=== PATIENT | male | born 1955 | race Caucasian/White ===

== ENCOUNTER 2019-03-29 12:25 | Inpatient (IN) | payer MEDICARE, OTHER ==
[~2019-03-29] VITALS: Ht 170.2 cm; Wt 95.0 kg
[2019-03-29] MEDS ORDERED: ondansetron/PF 4mg/2ml inj IV ONE (12:30)
[2019-03-29 13:12] LABS: BASOPHILS # (AUTO) 0.1 X10'3 (0-0.2); BASOPHILS % (AUTO) 0.7 % (0-1); EOSINOPHILS % (AUTO) 0 % (0-6); HEMATOCRIT 49.9 % (42.0-52.0); LYMPHOCYTES # (AUTO) 1.9 X10'3 (1.1-4.8); MEAN CORPUSCULAR HEMOGLOBIN 31.2 PG (27.0-31.0); MEAN CORPUSCULAR HGB CONC 34.1 g/dL (33.0-36.5); MEAN CORPUSCULAR VOLUME 91.6 FL (78-98); MEAN PLATELET VOLUME 7.8 FL (7.4-10.4); MONOCYTES # (AUTO) 2.2 X10'3 (0-0.9); MONOCYTES % (AUTO) 12.9 % (2-12); NEUTROPHILS # (AUTO) 13.1 X10'3 (1.8-7.7); NEUTROPHILS % (AUTO) 75.4 % (42-75); PLATELET COUNT 262 X10'3 (140-440); RED BLOOD COUNT 5.45 X10'6 (4.70-6.10); RED CELL DISTRIBUTION WIDTH 13.7 % (11.5-14.5); WHITE BLOOD COUNT 17.4 X10'3 (4.5-11.0)
[2019-03-29 13:22] LABS: ALANINE AMINOTRANSFERASE 14 U/L (12-78); ALBUMIN 3.1 G/DL (3.4-5.0); ALBUMIN/GLOBULIN RATIO 1.1 (1.1-1.5); ALKALINE PHOSPHATASE 79 IU/L (46-116); ANION GAP 13 (8-16); ASPARTATE AMINO TRANSFERASE 7 U/L (10-37); BLOOD UREA NITROGEN 34 MG/DL (7-18); BUN/CREATININE RATIO 30.9 (5.4-32.0); CALCIUM 8.2 MG/DL (8.5-10.1); CHLORIDE 109 MMOL/L (99-107); GLUCOSE 244 MG/DL (70-104); POTASSIUM 3.6 MMOL/L (3.5-5.1); SODIUM 138 MMOL/L (135-145); TOTAL CARBON DIOXIDE 16.2 MMOL/L (24-32); TOTAL PROTEIN 5.8 G/DL (6.4-8.2); eGFR 68 ML/MIN
[2019-03-29 13:30] LABS: CLARITY,URINE CLEAR (Clear); COLOR,URINE YELLOW (Yellow); GLUCOSE, URINE 500 mg/dl (Neg); KETONES,URINE 40 mg/dl (Neg); LEUKOCYTE ESTERASE ,URINE NEGATIVE (Neg); NITRITES, URINE NEGATIVE (Neg); OCCULT BLOOD,URINE MODERATE (Neg); PH,URINE 6.5 (4.8-8.0); PROTEIN,URINE 30 mg/dl (Neg)
[2019-03-29 13:34] LABS: LIPASE 73 U/L (73-393)
[2019-03-29 13:37] LABS: UA COLLECTION TYPE FOLEY CATH
[2019-03-29 13:44] LABS: MUCUS STRANDS FEW /LPF (Neg); SQUAMOUS EPITHELIAL CELL,UR NONE SEEN /LPF (FEW)
[2019-03-29 13:45] LABS: WBC,URINE 0-4 /HPF (0-4)
[2019-03-29 13:46] LABS: BACTERIA,URINE NONE SEEN /HPF (Neg); URIC ACID CRYSTALS 1+ /HPF (NEGATIVE)
[2019-03-29 15:43] LABS: BURR CELLS 1+; PLATELET ESTIMATE NORMAL; TOTAL CELLS COUNTED 100
[2019-03-29 15:44] LABS: TARGET CELLS FEW
[2019-03-29] MEDS ORDERED: magnesium hydroxide 30ml (MOM) UD suspension PO PRN (15:45)
[2019-03-29] MEDS ORDERED: dextrose 50%-water 50ml dispensing syringe IV PRN ×2 (15:45)
[2019-03-29] MEDS ORDERED: mag hydrox/Alum hydrox/simeth 30ml oral suspension PO PRN (15:45)
[2019-03-29] MEDS ORDERED: HYDROcodone/acetaminophen 5mg/325mg tablet PO PRN (15:45)
[2019-03-29] MEDS ORDERED: MESSAGE TO PHARMACY PO ONE (15:45)
[2019-03-29] MEDS ORDERED: dextrose ORAL solution 15 GM/59 ML bottle PO PRN ×2 (15:45)
[2019-03-29] MEDS ORDERED: acetaminophen 325mg tablet PO PRN ×2 (15:45)
[2019-03-29] MEDS ORDERED: glucagon, human recombinant 1mg kit SUBCUT PRN (15:45)
[2019-03-29 15:47] LABS: SMUDGE CELLS FEW
[2019-03-29] MEDS ORDERED: METF500T20 PO (16:34)
[2019-03-29] MEDS ORDERED: GLIP10TA11 PO (16:39)
[2019-03-29 16:44] LABS: PHOSPHORUS 2.5 MG/DL (2.3-4.5)
[2019-03-29 16:47] LABS: HEMOGLOBIN A1C 10.3 % (4.5-6.2)
--- NOTE | 2019-03-29 17:40 | NUR ---
Patient arrived to unit via gurney, transfered to bed via slide board. Patient Alert and orient x3. Able to communicate needs. Cooperative with care. Patient c/o slight nausea, no vomiting. Patient oriented to room and call light. Will continue to monitor.
[2019-03-29 17:58] VITALS: BP 138/81
[2019-03-29 18:00] VITALS: BP 140/66
--- NOTE | 2019-03-29 18:47 | NUR ---
Patient in room PCU 3018. I have received report from Jaja GUAJARDO and had the opportunity to ask questions and assume patient care.
[2019-03-29] MEDS: insulin Lispro (HumaLOG) vial - multi-dose SQ SCH ×2 (19:56→21:50)
--- NOTE | 2019-03-29 19:56 | NUR ---
Was waiting for patient to eat dinner to cover with insulin but patient did not eat anything so will just cover for correctional at this time. Patient to receive 9 units Humalog for blood glucose of 337 and no carb intake.
[2019-03-29] MEDS: insulin glargine (Lantus) pen - multi-dose SQ SCH (21:49)
[2019-03-29 22:00] VITALS: BP 135/71
[2019-03-30 00:48] LABS: BASOPHILS # (AUTO) 0.2 X10'3 (0-0.2); BASOPHILS % (AUTO) 1.2 % (0-1); EOSINOPHILS % (AUTO) 0.1 % (0-6); HEMATOCRIT 49.3 % (42.0-52.0); HEMOGLOBIN 16.6 g/dl (14.0-17.9); LYMPHOCYTES % (AUTO) 14.6 % (21-51); MEAN CORPUSCULAR HEMOGLOBIN 30.9 PG (27.0-31.0); MEAN CORPUSCULAR HGB CONC 33.7 g/dL (33.0-36.5); MEAN CORPUSCULAR VOLUME 91.9 FL (78-98); MONOCYTES # (AUTO) 1.1 X10'3 (0-0.9); MONOCYTES % (AUTO) 8.4 % (2-12); NEUTROPHILS # (AUTO) 10.2 X10'3 (1.8-7.7); NEUTROPHILS % (AUTO) 75.7 % (42-75); PLATELET COUNT 213 X10'3 (140-440); RED BLOOD COUNT 5.36 X10'6 (4.70-6.10); RED CELL DISTRIBUTION WIDTH 13.6 % (11.5-14.5); WHITE BLOOD COUNT 13.5 X10'3 (4.5-11.0)
[2019-03-30 01:05] LABS: ALBUMIN 2.8 G/DL (3.4-5.0); ANION GAP 16 (8-16); BLOOD UREA NITROGEN 28 MG/DL (7-18); BUN/CREATININE RATIO 30.4 (5.4-32.0); CALCIUM 7.7 MG/DL (8.5-10.1); CHLORIDE 107 MMOL/L (99-107); CHOL/HDL RATIO 5.5 (0.00-4.99); CHOLESTEROL 193 MG/DL (0-200); CREATININE 0.92 MG/DL (0.60-1.10); GLUCOSE 243 MG/DL (70-104); HDL CHOLESTEROL 35 MG/DL (35-60); LDL CHOLESTEROL 124 MG/DL (50-100); POTASSIUM 3.5 MMOL/L (3.5-5.1); SODIUM 140 MMOL/L (135-145); TOTAL CARBON DIOXIDE 17.2 MMOL/L (24-32); TRIGLYCERIDES 208 MG/DL (20-135); eGFR 83 ML/MIN
[2019-03-30 02:00] VITALS: BP 141/86
--- NOTE | 2019-03-30 06:26 | NUR ---
Problems reprioritized. Patient report given, questions answered & plan of care reviewed with Jaja GUAJARDO.
[2019-03-30 07:00] VITALS: BP 144/88
[2019-03-30] MEDS: insulin Lispro (HumaLOG) vial - multi-dose SQ SCH ×4 (08:30→21:11)
[2019-03-30] MEDS ORDERED: metoclopramide 5 mg/ml inj IV PRN (10:35)
[2019-03-30] MEDS: normal saline 1000ml 1,000 ML IV SCH ×2 (10:48→21:14)
[2019-03-30 11:00] VITALS: BP 144/75
[2019-03-30 15:00] VITALS: BP 121/58
--- NOTE | 2019-03-30 16:02 | NUR ---
Spoke with Dr. Cedeno, new order for Reglan 10mg IV q6 hours.
[2019-03-30] MEDS: ondansetron/PF 4mg/2ml inj IV PRN (16:13)
--- NOTE | 2019-03-30 16:36 | NUR ---
Santillan catheter removed, per patient request. Patient c/o discomfort and requested to use the urinal.
--- NOTE | 2019-03-30 17:08 | NUR ---
Initial: Pt admit with hyperglycemia with BG in the 700 range and newly diagnosed atrial fibrillation per H&P. Pt seen at bedside immediately tells RD that this is something that's been going on for a few years and is likely not going to change. When RD inquired pt reports most of his meals are store bought pre-prepared meals d/t low income. RD verbalized understanding and resorted to educating pt on reading the nutrition facts label to ensure pt able to monitor his CHO intake given his circumstances. Pt reports he is well versed in the nutrition facts label and was able to recite the CHO content in certain food items. Pt provided with written and verbal DM education with referral to outpatient DM class. It appears pt understands appropriate DM management however doesn't seem to be motivated to do so. Pt reports he takes his meds per rx however doesn't check his BG levels because he doesn't believe it does anything. Pt reports he can tell when he is having a high or low blood sugar. RD encouraged pt to check his BG levels consistently in order to get a better understanding of his DM management and for his MD to ensure appropriate rx. Pt provided with RD contact information and encouraged to reach out if he has any questions. Pt on heart healthy CHO controlled diet with poor PO intake 0-25% not meeting nutrient needs. Pt reports his appetite is improving until he gets nauseous. RD informed RN about pt feeling nauseous during RD visit and pt requesting Zofran. Pt receiving routine Reglan for possible gastroparesis as etiology for persistent dry heaves and nausea per MD notes. Pt provided with alternative heart healthy menu to provide additional food options and optimize PO intake. Pt denies food allergies, difficulty chewing/swallowing, or constipation/diarrhea. LBM 03/29. Will continue to follow closely. Recommendations: 1) Continue heart healthy CHO controlled diet 2) Encourage PO intake 3) Monitor need for ONS 4) Low fiber nutrition therapy education IF gastroparesis 5) Routine bowel care 6) Wt per rx Addendum: 03/30/19 at [address] Amended: Links added.
--- NOTE | 2019-03-30 17:27 | NUR ---
Patient c/o chest pain, upon palpation of abdomen pain c/[address] Cedeno notified of this via phone. Order to give morphine 2mg IV and continue to monitor.
[2019-03-30] MEDS: morphine 2 MG/ML inj. syringe IV PRN (17:34)
--- NOTE | 2019-03-30 18:30 | NUR ---
Patient in room PCU 3018. I have received report from PIERO and had the opportunity to ask questions and assume patient care.
[2019-03-30 19:15] VITALS: BP 139/73
[2019-03-30] MEDS: insulin glargine (Lantus) pen - multi-dose SQ SCH (21:12)
[2019-03-30] MEDS: metoclopramide 5 mg/ml inj IV SCH (21:17)
[2019-03-30 22:00] VITALS: BP 128/73
[2019-03-31] MEDS: metoclopramide 5 mg/ml inj IV SCH ×4 (01:59→20:49)
[2019-03-31 02:00] VITALS: BP 119/54
[2019-03-31 05:22] LABS: BASOPHILS # (AUTO) 0.1 X10'3 (0-0.2); BASOPHILS % (AUTO) 0.8 % (0-1); EOSINOPHILS % (AUTO) 0.3 % (0-6); HEMATOCRIT 44.4 % (42.0-52.0); HEMOGLOBIN 15.4 g/dl (14.0-17.9); LYMPHOCYTES % (AUTO) 22.5 % (21-51); MEAN CORPUSCULAR HEMOGLOBIN 31.7 PG (27.0-31.0); MEAN CORPUSCULAR HGB CONC 34.6 g/dL (33.0-36.5); MEAN CORPUSCULAR VOLUME 91.7 FL (78-98); MEAN PLATELET VOLUME 8.1 FL (7.4-10.4); MONOCYTES # (AUTO) 0.8 X10'3 (0-0.9); MONOCYTES % (AUTO) 8.6 % (2-12); NEUTROPHILS # (AUTO) 6.2 X10'3 (1.8-7.7); NEUTROPHILS % (AUTO) 67.8 % (42-75); PLATELET COUNT 155 X10'3 (140-440); RED BLOOD COUNT 4.85 X10'6 (4.70-6.10); RED CELL DISTRIBUTION WIDTH 13.6 % (11.5-14.5); WHITE BLOOD COUNT 9.1 X10'3 (4.5-11.0)
[2019-03-31 05:48] LABS: ALBUMIN 2.5 G/DL (3.4-5.0); ANION GAP 9 (8-16); BLOOD UREA NITROGEN 14 MG/DL (7-18); BUN/CREATININE RATIO 23.7 (5.4-32.0); CALCIUM 7.4 MG/DL (8.5-10.1); CHLORIDE 111 MMOL/L (99-107); CREATININE 0.59 MG/DL (0.60-1.10); GLUCOSE 206 MG/DL (70-104); POTASSIUM 3.5 MMOL/L (3.5-5.1); SODIUM 144 MMOL/L (135-145); TOTAL CARBON DIOXIDE 24.1 MMOL/L (24-32); eGFR > 90 ML/MIN
[2019-03-31 06:00] VITALS: BP 134/84
--- NOTE | 2019-03-31 06:05 | NUR ---
ANSWERED CALL LIGHT, FOUND PT ON THE FLOOR AT THE END OF THE BED. CALL LIGHT HAD BEEN ON FOR 2 MINUTES WHEN ANSWERED. PT STATES THAT HE WAS "GETTING UP TO PEE AND DIDN'T WANT TO BOTHER ANYBODY." PT ASSISTED TO THE CHAIR AND URINAL. PT ASSISTED BACK INTO BED. DENIES PAIN. BP 134/81,HR 68 OXYGEN SATURATIONS 100% RA. DR GARCIA NOTIFIED OF ABOVE INFORMATION. NO NEW ORDERS
--- NOTE | 2019-03-31 06:42 | NUR ---
Patient in room PCU 3018. I have received report from Nicole GUAJARDO and had the opportunity to ask questions and assume patient care.
--- NOTE | 2019-03-31 06:43 | NUR ---
Problems reprioritized. Patient report given, questions answered & plan of care reviewed with
[2019-03-31] MEDS: normal saline 1000ml 1,000 ML IV SCH ×2 (07:09→15:42)
[2019-03-31] MEDS: ondansetron/PF 4mg/2ml inj IV PRN ×2 (07:30→15:42)
[2019-03-31] MEDS: insulin Lispro (HumaLOG) vial - multi-dose SQ SCH ×2 (09:28→13:16)
--- NOTE | 2019-03-31 10:05 | NUR ---
Paged Dr Cedeno regarding pt c/o new L hip pain of 09/07 when working with PT. Pt is not putting any weight on the affected extremity and asking for pain medication. Will continue to closely monitor. PAGER ID: [phone] MESSAGE: Niru GUAJARDO [phone] [place], [id number], new onset L hip pain 09/07, barely putting any weight on LLE, pt fell this morning on that side, please advise, thanks! Addendum: 03/31/19 at 1041 by Janelle Benites RN Dr Cedeno called back and I received and order to get an Xray of the affected hip.
[2019-03-31] MEDS: morphine 2 MG/ML inj. syringe IV PRN ×3 (10:13→21:41)
[2019-03-31 11:00] VITALS: BP 140/60
[2019-03-31] MEDS: HYDROcodone/acetaminophen 10/325mg tab PO PRN (13:09)
--- NOTE | 2019-03-31 14:40 | NUR ---
C/O sweats/nausea, pt blood glucose level 126, will continue to monitor.
[2019-03-31 15:00] VITALS: BP 115/63
--- NOTE | 2019-03-31 16:04 | NUR ---
C/O hot sweats, nausea and anxiety despite PRN Zofran and PRN Morphine. Paged Dr. Cedeno regarding pts symptoms, will continue to monitor closely. PAGER ID: [phone] MESSAGE: Niru GUAJARDO [phone], [place], c/o feeling anxious/restless and has hot sweats, blood sugar WNL, could I have an order for prn ativan please? Thanks!
[2019-03-31 18:00] VITALS: BP 95/60
--- NOTE | 2019-03-31 18:00 | NUR ---
Patient in room PCU 3018. I have received report from Niru GUAJARDO and had the opportunity to ask questions and assume patient care.
--- NOTE | 2019-03-31 18:24 | NUR ---
Problems reprioritized. Patient report given, questions answered & plan of care reviewed with Jennifer GUAJARDO.
[2019-03-31] MEDS: insulin glargine (Lantus) pen - multi-dose SQ SCH (21:36)
[2019-03-31 22:00] VITALS: BP 141/60
[2019-04-01 02:00] VITALS: BP 115/49
[2019-04-01] MEDS: metoclopramide 5 mg/ml inj IV SCH ×4 (02:54→20:00)
[2019-04-01] MEDS: normal saline 1000ml 1,000 ML IV SCH (02:56)
[2019-04-01] MEDS: morphine 2 MG/ML inj. syringe IV PRN (03:07)
[2019-04-01 05:13] LABS: BASOPHILS % (AUTO) 0.5 % (0-1); EOSINOPHILS # (AUTO) 0.1 X10'3 (0-0.9); EOSINOPHILS % (AUTO) 1.2 % (0-6); HEMATOCRIT 43.7 % (42.0-52.0); LYMPHOCYTES # (AUTO) 1.6 X10'3 (1.1-4.8); LYMPHOCYTES % (AUTO) 18.2 % (21-51); MEAN CORPUSCULAR HEMOGLOBIN 31.2 PG (27.0-31.0); MEAN CORPUSCULAR HGB CONC 34.3 g/dL (33.0-36.5); MEAN CORPUSCULAR VOLUME 91.1 FL (78-98); MEAN PLATELET VOLUME 8.4 FL (7.4-10.4); MONOCYTES # (AUTO) 0.7 X10'3 (0-0.9); MONOCYTES % (AUTO) 7.4 % (2-12); NEUTROPHILS # (AUTO) 6.5 X10'3 (1.8-7.7); NEUTROPHILS % (AUTO) 72.7 % (42-75); PLATELET COUNT 131 X10'3 (140-440); RED BLOOD COUNT 4.79 X10'6 (4.70-6.10); RED CELL DISTRIBUTION WIDTH 13.6 % (11.5-14.5); WHITE BLOOD COUNT 8.9 X10'3 (4.5-11.0)
[2019-04-01 05:24] LABS: ALBUMIN 2.5 G/DL (3.4-5.0); ANION GAP 10 (8-16); BLOOD UREA NITROGEN 13 MG/DL (7-18); BUN/CREATININE RATIO 23.2 (5.4-32.0); CALCIUM 7.9 MG/DL (8.5-10.1); CHLORIDE 107 MMOL/L (99-107); CREATININE 0.56 MG/DL (0.60-1.10); GLUCOSE 271 MG/DL (70-104); POTASSIUM 3.3 MMOL/L (3.5-5.1); SODIUM 141 MMOL/L (135-145); TOTAL CARBON DIOXIDE 24.4 MMOL/L (24-32); eGFR > 90 ML/MIN
[2019-04-01 06:00] VITALS: BP 116/57
--- NOTE | 2019-04-01 06:23 | NUR ---
Patient in room PCU 3018. I have received report from Jennifer GUAJARDO and had the opportunity to ask questions and assume patient care.
--- NOTE | 2019-04-01 06:27 | NUR ---
Problems reprioritized. Patient report given, questions answered & plan of care reviewed with Niru GUAJARDO.
[2019-04-01] MEDS: ondansetron/PF 4mg/2ml inj IV PRN (07:51)
[2019-04-01] MEDS: HYDROcodone/acetaminophen 10/325mg tab PO PRN ×2 (07:51→12:51)
[2019-04-01] MEDS: insulin Lispro (HumaLOG) vial - multi-dose SQ SCH ×3 (08:34→20:04)
[2019-04-01] MEDS ORDERED: potassium CL 10mEq/100ml bag 100 ML IV PRN (09:30)
[2019-04-01] MEDS ORDERED: magnesium Cl slow-release 64mg tablet PO PRN (09:30)
[2019-04-01] MEDS ORDERED: magnesium 4gm in 100ml NS 100 ML IV PRN (09:30)
[2019-04-01] MEDS ORDERED: potassium Cl 20 mEq SR tablet PO PRN (09:30)
[2019-04-01] MEDS: K and/or MAG REPLACEMENT MC SCH ×2 (09:30→20:00)
[2019-04-01] MEDS: potassium Cl 20 mEq SR tablet PO PRN ×3 (09:52→20:01)
[2019-04-01 11:00] VITALS: BP 102/53
[2019-04-01 15:00] VITALS: BP 113/53
[2019-04-01 18:00] VITALS: BP 134/74
--- NOTE | 2019-04-01 18:02 | NUR ---
Problems reprioritized. Patient report given, questions answered & plan of care reviewed with Jennifer GUAJARDO.
--- NOTE | 2019-04-01 18:13 | NUR ---
Patient in room PCU 3018. I have received report from Niru GUAJARDO and had the opportunity to ask questions and assume patient care.
[2019-04-01] MEDS: insulin glargine (Lantus) pen - multi-dose SQ SCH (21:57)
[2019-04-01 22:00] VITALS: BP 115/55
[2019-04-02 02:00] VITALS: BP 112/51
[2019-04-02] MEDS: metoclopramide 5 mg/ml inj IV SCH ×3 (02:52→13:03)
[2019-04-02 05:16] LABS: BASOPHILS # (AUTO) 0.1 X10'3 (0-0.2); BASOPHILS % (AUTO) 0.8 % (0-1); EOSINOPHILS # (AUTO) 0.2 X10'3 (0-0.9); EOSINOPHILS % (AUTO) 2.4 % (0-6); HEMATOCRIT 42.8 % (42.0-52.0); HEMOGLOBIN 14.6 g/dl (14.0-17.9); LYMPHOCYTES # (AUTO) 2.6 X10'3 (1.1-4.8); LYMPHOCYTES % (AUTO) 31.6 % (21-51); MEAN CORPUSCULAR HEMOGLOBIN 30.7 PG (27.0-31.0); MEAN CORPUSCULAR HGB CONC 34.1 g/dL (33.0-36.5); MEAN CORPUSCULAR VOLUME 89.9 FL (78-98); MEAN PLATELET VOLUME 8.6 FL (7.4-10.4); MONOCYTES # (AUTO) 0.6 X10'3 (0-0.9); MONOCYTES % (AUTO) 7.2 % (2-12); NEUTROPHILS # (AUTO) 4.8 X10'3 (1.8-7.7); PLATELET COUNT 149 X10'3 (140-440); RED BLOOD COUNT 4.76 X10'6 (4.70-6.10); RED CELL DISTRIBUTION WIDTH 13.3 % (11.5-14.5); WHITE BLOOD COUNT 8.2 X10'3 (4.5-11.0)
[2019-04-02 05:26] LABS: ALBUMIN 2.6 G/DL (3.4-5.0); ANION GAP 9 (8-16); BLOOD UREA NITROGEN 11 MG/DL (7-18); BUN/CREATININE RATIO 19.3 (5.4-32.0); CALCIUM 8.1 MG/DL (8.5-10.1); CHLORIDE 108 MMOL/L (99-107); CREATININE 0.57 MG/DL (0.60-1.10); GLUCOSE 174 MG/DL (70-104); POTASSIUM 3.3 MMOL/L (3.5-5.1); SODIUM 144 MMOL/L (135-145); TOTAL CARBON DIOXIDE 26.7 MMOL/L (24-32); eGFR > 90 ML/MIN
[2019-04-02 06:00] VITALS: BP 143/89
--- NOTE | 2019-04-02 06:11 | NUR ---
Problems reprioritized. Patient report given, questions answered & plan of care reviewed with Niru GUJAARDO.
--- NOTE | 2019-04-02 06:22 | NUR ---
Patient in room PCU 3018. I have received report from Keke GUAJARDO and had the opportunity to ask questions and assume patient care.
[2019-04-02] MEDS: ondansetron/PF 4mg/2ml inj IV PRN (07:08)
[2019-04-02] MEDS: potassium Cl 20 mEq SR tablet PO PRN ×2 (07:08→11:22)
[2019-04-02] MEDS: HYDROcodone/acetaminophen 10/325mg tab PO PRN ×2 (07:08→13:03)
[2019-04-02] MEDS: K and/or MAG REPLACEMENT MC SCH (08:00)
[2019-04-02] MEDS: insulin Lispro (HumaLOG) vial - multi-dose SQ SCH ×2 (08:08→12:49)
[2019-04-02 11:00] VITALS: BP 102/63
--- NOTE | 2019-04-02 12:25 | NUR ---
Problems reprioritized. Patient report given, questions answered & plan of care reviewed with Mio NAVARRON at [facility].
--- NOTE | 2019-04-02 13:43 | NUR ---
Reassessment: PO intake slowly improving. Pt documented with 100% PO intake x 2 meals 03/31 however most recently averaging 50% PO intake. Pt has already been provided with alternative heart healthy menu and RD contact information. Pt documented with c/o abdominal pain and nausea, likely impacting PO intake. Pt receiving routine Reglan and PRN Zofran last given today. LBM 04/01. Will continue to follow closely and make recommendations as appropriate. Recommendations: 1) Continue heart healthy CHO controlled diet 2) Encourage PO intake 3) Monitor need for ONS 4) Low fiber nutrition therapy education IF gastroparesis 5) Routine bowel care 6) Zofran PRN for nausea 7) Wt per rx Addendum: 04/02/19 at [address] Amended: Links added.
--- NOTE | 2019-04-02 13:43 | NUR ---
Stable for discharge per MD, report called to [facility], plan of care reviewed with pt and all questions answered, PIV discontinued, left the unit at 1338 in wheelchair with [facility] personnel.
== END 2019-04-02 13:38 | DRG 682 ==
LOC: ER 12:26 → ED HOLD 15:41 → PCU 3S 18:28 → OBSVTOIN 03-30 09:50
PROVIDERS: ADMIT Internal Medicine; ATTEND Internal Medicine
DX: N17.9 Acute kidney failure, unspecified (principal); E11.10 Type 2 diabetes mellitus with ketoacidosis without coma; F12.90 Cannabis use, unspecified, uncomplicated; I48.91 Unspecified atrial fibrillation; E11.22 Type 2 diabetes mellitus with diabetic chronic kidney disease; I12.9 Hypertensive chronic kidney disease with stage 1 through stage 4 chronic kidney disease, or unspecified chronic kidney disease; N18.9 Chronic kidney disease, unspecified; E86.0 Dehydration; I48.0 Paroxysmal atrial fibrillation; E11.43 Type 2 diabetes mellitus with diabetic autonomic (poly)neuropathy; K31.84 Gastroparesis; E11.65 Type 2 diabetes mellitus with hyperglycemia
CPT/HCPCS: 36415; 71045; 73502; 80048; 80053; 80061; 81001; 82948; 83036; 83605; 83690; 83735; 83880; 84100; 84145; 84484; 85025; 87081; 93005; 93306; 97110; 97116; 97161; 97530; G0378; J1815; J2270; J2405; J2765; J7030

== ENCOUNTER 2020-05-27 02:55 | Inpatient (IN) | payer MEDICARE, MEDICAID ==
[~2020-05-27] VITALS: Ht 170.2 cm; Wt 100.0 kg
[~2020-05-27 02:55] MED LIST: GLIP10TA11 PO; METF-900 PO
[2020-05-27] MEDS ORDERED: normal saline 1000ML IV soln IVB ONE (03:00)
[2020-05-27] MEDS ORDERED: haloperidol lactate 5mg/ml inj IM ONE (03:45)
[2020-05-27 03:51] LABS: BASOPHILS # (AUTO) 0.1 X10'3 (0-0.2); BASOPHILS % (AUTO) 0.8 % (0-1); EOSINOPHILS % (AUTO) 0 % (0-6); HEMATOCRIT 51.5 % (42.0-52.0); HEMOGLOBIN 17.2 g/dl (14.0-17.9); LYMPHOCYTES # (AUTO) 1.3 X10'3 (1.1-4.8); LYMPHOCYTES % (AUTO) 7.5 % (21-51); MEAN CORPUSCULAR HGB CONC 33.4 g/dL (33.0-36.5); MEAN CORPUSCULAR VOLUME 92.7 FL (78-98); MEAN PLATELET VOLUME 7.8 FL (7.4-10.4); MONOCYTES # (AUTO) 1.3 X10'3 (0-0.9); MONOCYTES % (AUTO) 7.8 % (2-12); NEUTROPHILS # (AUTO) 14.4 X10'3 (1.8-7.7); NEUTROPHILS % (AUTO) 83.9 % (42-75); PLATELET COUNT 239 X10'3 (140-440); RED BLOOD COUNT 5.56 X10'6 (4.70-6.10); RED CELL DISTRIBUTION WIDTH 13.9 % (11.5-14.5); WHITE BLOOD COUNT 17.1 X10'3 (4.5-11.0)
[2020-05-27 03:55] LABS: PARTIAL THROMBOPLASTIN TIME 31 SECONDS (22-32)
[2020-05-27 03:56] LABS: ALANINE AMINOTRANSFERASE 18 U/L (12-78); ALBUMIN 3.5 G/DL (3.4-5.0); ALBUMIN/GLOBULIN RATIO 1.1 (1.1-1.5); ALKALINE PHOSPHATASE 67 IU/L (46-116); ANION GAP 17 (8-16); ASPARTATE AMINO TRANSFERASE 11 U/L (10-37); BILIRUBIN,TOTAL 0.9 MG/DL (0.1-1.0); BLOOD UREA NITROGEN 21 MG/DL (7-18); BUN/CREATININE RATIO 16.7 (5.4-32.0); CALCIUM 8.5 MG/DL (8.5-10.1); CHLORIDE 101 MMOL/L (99-107); CREATININE 1.26 MG/DL (0.60-1.10); GLUCOSE 283 MG/DL (70-104); POTASSIUM 3.6 MMOL/L (3.5-5.1); SODIUM 135 MMOL/L (135-145); TOTAL CARBON DIOXIDE 16.9 MMOL/L (24-32); TOTAL PROTEIN 6.8 G/DL (6.4-8.2); eGFR 58 ML/MIN
[2020-05-27] MEDS ORDERED: potassium Cl 20 mEq SR tablet PO PRN ×2 (04:35)
[2020-05-27] MEDS ORDERED: potassium Cl 40MEQ/1/2NS 520ml 520 ML IV PRN (04:35)
[2020-05-27] MEDS ORDERED: magnesium hydroxide 30ml (MOM) UD suspension PO PRN (04:35)
[2020-05-27] MEDS ORDERED: acetaminophen 325mg tablet PO PRN (04:35)
[2020-05-27] MEDS ORDERED: dextrose 50%-water 50ml dispensing syringe IV PRN ×2 (04:40)
[2020-05-27] MEDS ORDERED: MESSAGE TO PHARMACY PO ONE (04:40)
[2020-05-27] MEDS ORDERED: dextrose ORAL solution 15 GM/59 ML bottle PO PRN ×2 (04:40)
[2020-05-27] MEDS ORDERED: glucagon, human recombinant 1mg kit SUBCUT PRN (04:40)
[2020-05-27 05:05] LABS: CLARITY,URINE CLEAR (Clear); COLOR,URINE YELLOW (Yellow); GLUCOSE, URINE 500 mg/dl (Neg); KETONES,URINE >=80 mg/dl (Neg); LEUKOCYTE ESTERASE ,URINE NEGATIVE (Neg); NITRITES, URINE NEGATIVE (Neg); OCCULT BLOOD,URINE TRACE-INTACT (Neg); PROTEIN,URINE NEGATIVE (Neg); UROBILINOGEN,URINE 0.2 E.U/dL (0.2-1.0)
[2020-05-27 05:12] LABS: UA COLLECTION TYPE CLN CATCH MIDSTREAM
[2020-05-27 05:13] LABS: BACTERIA,URINE NONE SEEN /HPF (Neg); RBC,URINE 0-2 /HPF (0-2); SQUAMOUS EPITHELIAL CELL,UR NONE SEEN /LPF (FEW); WBC,URINE NONE SEEN /HPF (0-4)
[2020-05-27] MEDS: normal saline 1000ml 1,000 ML IV SCH ×2 (05:31→15:55)
[2020-05-27 06:15] VITALS: BP 171/95
[2020-05-27] MEDS ORDERED: metoprolol tartrate 25mg tablet PO STA (06:25)
--- NOTE | 2020-05-27 06:26 | NUR ---
I called Dr. Sierra regarding rapid afib 150's rvr per telemarketer and stable b/p recorded. He gave order for Po Lopressor times one stat. I also told him that we were doing a stat ekg now too. Per the ER nurse he had only been in the 110's before he left the ER but then he had to go to bathroom in a hurry before leaving ER and now heart rate in the 150's after that.
--- NOTE | 2020-05-27 06:43 | NUR ---
Patient in room ORTHO 4015. I have received report from Cassidy GUAJARDO and had the opportunity to ask questions and assume patient care.
[2020-05-27 06:49] VITALS: BP 158/100
--- NOTE | 2020-05-27 07:09 | NUR ---
Patient blood sugar was 305mg/dl, Humalog not available yet at this time. Message sent to pharmacy to deliver Humalog insulin for this patient.
[2020-05-27] MEDS: enoxaparin 100mg/ml syringe SUBCUT SCH ×2 (07:28→19:12)
[2020-05-27] MEDS: insulin Lispro (HumaLOG) vial - multi-dose SQ SCH ×4 (07:39→21:07)
--- NOTE | 2020-05-27 07:41 | NUR ---
Patient denies chest pain this morning but rather abdominal pain and feeling nauseous.
[2020-05-27] MEDS ORDERED: aspirin 325mg tablet, delayed-release (Ecotrin) PO SCH (08:00)
[2020-05-27] MEDS ORDERED: enoxaparin 40mg/0.4ml syringe SUBCUT SCH (08:00)
[2020-05-27] MEDS: K and/or MAG REPLACEMENT MC SCH ×2 (08:00→18:34)
--- NOTE | 2020-05-27 09:15 | NUR ---
Paged Dr. Lawrence PAGER ID: [phone] MESSAGE: Ortho/Neuro Kimberlyn GUAJARDO ext [phone]. RE: Emil [place]. Patient has been having afib with RVR HR 140's-150's. Metoprolol 25mg PO x 1 was given still HR 150's. Patient troponin (+) x 2 (0.09, 0.10).
[2020-05-27 09:16] VITALS: BP 129/69
[2020-05-27 09:56] VITALS: BP 142/91
--- NOTE | 2020-05-27 11:00 | NUR ---
Per Charge nurse Jacques, Dr. Lawrence came by during my break, he was aware about elevated troponin, heart rate was high on afib then converted to sinus rhythm.
--- NOTE | 2020-05-27 14:24 | NUR ---
DM consult: Pt with A1c 9.7%. Attempted bedside visit however pt unavailable. Will try again at another time. Addendum: 05/27/20 at [address] Amended: Links added.
[2020-05-27] MEDS: mag hydrox/Alum hydrox/simeth 30ml oral suspension PO PRN ×2 (15:52→21:11)
[2020-05-27 17:19] LABS: ALANINE AMINOTRANSFERASE 21 U/L (12-78); ALBUMIN 3.1 G/DL (3.4-5.0); ALKALINE PHOSPHATASE 58 IU/L (46-116); ANION GAP 15 (8-16); ASPARTATE AMINO TRANSFERASE 11 U/L (10-37); BILIRUBIN,TOTAL 0.8 MG/DL (0.1-1.0); BLOOD UREA NITROGEN 22 MG/DL (7-18); BUN/CREATININE RATIO 20.6 (5.4-32.0); CALCIUM 8.2 MG/DL (8.5-10.1); CHLORIDE 104 MMOL/L (99-107); CREATININE 1.07 MG/DL (0.60-1.10); GLUCOSE 249 MG/DL (70-104); POTASSIUM 3.5 MMOL/L (3.5-5.1); SODIUM 136 MMOL/L (135-145); TOTAL CARBON DIOXIDE 17.4 MMOL/L (24-32); TOTAL PROTEIN 6.3 G/DL (6.4-8.2); eGFR 70 ML/MIN
[2020-05-27 18:00] VITALS: BP 129/61
--- NOTE | 2020-05-27 18:36 | NUR ---
Problems reprioritized. Patient report given, questions answered & plan of care reviewed with Rebecca GUAJARDO.
[2020-05-27] MEDS: ondansetron/PF 4mg/2ml inj IV PRN (19:11)
[2020-05-27] MEDS: metoprolol tartrate 25mg tablet PO SCH (19:13)
[2020-05-27] MEDS: insulin glargine (Lantus) pen - multi-dose SQ SCH (21:09)
[2020-05-27 22:00] VITALS: BP 150/70
[2020-05-28] VITALS (11 sets, daily range): BP systolic 95–131; BP diastolic 39–68
[2020-05-28] MEDS: normal saline 1000ml 1,000 ML IV SCH ×4 (02:28→19:23)
[2020-05-28] MEDS ORDERED: simethicone 125mg capsule PO PRN (03:30)
[2020-05-28] MEDS ORDERED: pantoprazole 40 MG vial IV ONE (03:50)
--- NOTE | 2020-05-28 03:56 | NUR ---
pt had very large black tar stool. x2. dr Sierra notified, new orders for stat CBC, and protonix IV 40mg once. also d/c Lovenox and ASA. also stat type and screen.
[2020-05-28 05:20] LABS: BASOPHILS # (AUTO) 0.1 X10'3 (0-0.2); BASOPHILS % (AUTO) 0.8 % (0-1); EOSINOPHILS % (AUTO) 0 % (0-6); HEMATOCRIT 40.8 % (42.0-52.0); HEMOGLOBIN 13.8 g/dl (14.0-17.9); LYMPHOCYTES # (AUTO) 1.4 X10'3 (1.1-4.8); LYMPHOCYTES % (AUTO) 9.6 % (21-51); MEAN CORPUSCULAR HEMOGLOBIN 31.5 PG (27.0-31.0); MEAN CORPUSCULAR HGB CONC 33.8 g/dL (33.0-36.5); MEAN CORPUSCULAR VOLUME 93.3 FL (78-98); MEAN PLATELET VOLUME 7.5 FL (7.4-10.4); MONOCYTES # (AUTO) 1.3 X10'3 (0-0.9); MONOCYTES % (AUTO) 8.7 % (2-12); NEUTROPHILS # (AUTO) 11.8 X10'3 (1.8-7.7); NEUTROPHILS % (AUTO) 80.9 % (42-75); PLATELET COUNT 216 X10'3 (140-440); RED BLOOD COUNT 4.38 X10'6 (4.70-6.10); RED CELL DISTRIBUTION WIDTH 13.8 % (11.5-14.5); WHITE BLOOD COUNT 14.6 X10'3 (4.5-11.0)
[2020-05-28] MEDS ORDERED: normal saline 1000ml 1,000 ML IVB ONE (05:20)
[2020-05-28] MEDS: ondansetron/PF 4mg/2ml inj IV PRN (05:34)
[2020-05-28 05:39] LABS: ALANINE AMINOTRANSFERASE 16 U/L (12-78); ALBUMIN 2.5 G/DL (3.4-5.0); ALKALINE PHOSPHATASE 51 IU/L (46-116); ANION GAP 18 (8-16); ASPARTATE AMINO TRANSFERASE 9 U/L (10-37); BILIRUBIN,TOTAL 0.9 MG/DL (0.1-1.0); BLOOD UREA NITROGEN 33 MG/DL (7-18); BUN/CREATININE RATIO 37.1 (5.4-32.0); CALCIUM 7.6 MG/DL (8.5-10.1); CHLORIDE 103 MMOL/L (99-107); CREATININE 0.89 MG/DL (0.60-1.10); GLUCOSE 342 MG/DL (70-104); POTASSIUM 4.5 MMOL/L (3.5-5.1); SODIUM 133 MMOL/L (135-145); TOTAL PROTEIN 5.1 G/DL (6.4-8.2); eGFR 86 ML/MIN
[2020-05-28 05:44] LABS: TOTAL CARBON DIOXIDE 11.9 MMOL/L (24-32)
--- NOTE | 2020-05-28 05:47 | NUR ---
new orders per Dr Sierra to bolus 1 L NS, and increase NS rate to 150ml/hr continuous. CBC, CMP, and TyPe and Screen to lab. pt continues to have black tar stools. gave Zofran for nausea and Protonix per orders.
--- NOTE | 2020-05-28 06:05 | NUR ---
received report from kami baez
--- NOTE | 2020-05-28 06:35 | NUR ---
new orders per Dr. Sierra , after updated BP 96/61, HR 108, give one additional liter NS and increase fluids to 200ml/hr. Dr. Sierra has alerted the ICU if needed. Report given to kami Jernigan.
[2020-05-28] MEDS: metoprolol tartrate 25mg tablet PO SCH ×2 (07:41→19:23)
[2020-05-28] MEDS: K and/or MAG REPLACEMENT MC SCH ×2 (08:00→18:43)
[2020-05-28] MEDS: insulin Lispro (HumaLOG) vial - multi-dose SQ SCH ×3 (08:37→19:21)
[2020-05-28] MEDS: CefTRIAXone/D5W-Rocephin 1gm 50 ML IV SCH (08:39)
[2020-05-28] MEDS: pantoprazole 40MG/NS 100ML BAG 100 ML IV SCH ×3 (09:43→19:22)
[2020-05-28] MEDS: sodium bicarbonate (8.4%) inj. 100 MEQ in dextrose 5%-water 1,000 ML IV SCH ×2 (10:28→21:11)
[2020-05-28 10:42] LABS: OCCULT BLOOD STOOL POSITIVE (Neg)
[2020-05-28 12:37] LABS: ALANINE AMINOTRANSFERASE 14 U/L (12-78); ALBUMIN 2.2 G/DL (3.4-5.0); ALBUMIN/GLOBULIN RATIO 0.9 (1.1-1.5); ALKALINE PHOSPHATASE 39 IU/L (46-116); ANION GAP 19 (8-16); ASPARTATE AMINO TRANSFERASE 9 U/L (10-37); BILIRUBIN,TOTAL 0.5 MG/DL (0.1-1.0); BLOOD UREA NITROGEN 34 MG/DL (7-18); BUN/CREATININE RATIO 34.7 (5.4-32.0); CHLORIDE 107 MMOL/L (99-107); CREATININE 0.98 MG/DL (0.60-1.10); GLUCOSE 265 MG/DL (70-104); POTASSIUM 3.9 MMOL/L (3.5-5.1); SODIUM 139 MMOL/L (135-145); TOTAL PROTEIN 4.7 G/DL (6.4-8.2); eGFR 77 ML/MIN
[2020-05-28 12:43] LABS: TOTAL CARBON DIOXIDE 13.3 MMOL/L (24-32)
[2020-05-28 12:44] LABS: HEMATOCRIT 33.3 % (42.0-52.0); HEMOGLOBIN 11.3 g/dl (14.0-17.9); MEAN CORPUSCULAR HEMOGLOBIN 31.7 PG (27.0-31.0); MEAN CORPUSCULAR HGB CONC 33.9 g/dL (33.0-36.5); MEAN CORPUSCULAR VOLUME 93.6 FL (78-98); MEAN PLATELET VOLUME 7.9 FL (7.4-10.4); PLATELET COUNT 180 X10'3 (140-440); RED BLOOD COUNT 3.56 X10'6 (4.70-6.10); WHITE BLOOD COUNT 12.7 X10'3 (4.5-11.0)
[2020-05-28] MEDS ORDERED: fentaNYL/PF 50MCG/1 ML 2ML syringe ONE (15:14)
[2020-05-28] MEDS ORDERED: MIDAZolam 1 MG/ML 5ML VIAL ONE (15:14)
[2020-05-28] MEDS ORDERED: LIDOcaine Viscous 15ml cup ONE (15:14)
--- NOTE | 2020-05-28 18:12 | NUR ---
gave report to kami baez
[2020-05-28 18:24] LABS: ALBUMIN 2.2 G/DL (3.4-5.0); ANION GAP 11 (8-16); BLOOD UREA NITROGEN 27 MG/DL (7-18); BUN/CREATININE RATIO 34.6 (5.4-32.0); CALCIUM 7.3 MG/DL (8.5-10.1); CHLORIDE 109 MMOL/L (99-107); CREATININE 0.78 MG/DL (0.60-1.10); GLUCOSE 157 MG/DL (70-104); SODIUM 139 MMOL/L (135-145); TOTAL CARBON DIOXIDE 19.2 MMOL/L (24-32); eGFR > 90 ML/MIN
[2020-05-28] MEDS ORDERED: GABA300C PO (18:29)
[2020-05-28] MEDS ORDERED: OMEP-50 PO (18:29)
[2020-05-28] MEDS ORDERED: METF-436 PO (18:30)
[2020-05-28] MEDS: insulin glargine (Lantus) pen - multi-dose SQ SCH (21:11)
[2020-05-29] MEDS: pantoprazole 40MG/NS 100ML BAG 100 ML IV SCH ×5 (00:07→22:05)
[2020-05-29 06:00] VITALS: BP 125/70
--- NOTE | 2020-05-29 06:33 | NUR ---
Report given to kami Dyer.
[2020-05-29] MEDS: CefTRIAXone/D5W-Rocephin 1gm 50 ML IV SCH (07:13)
[2020-05-29] MEDS: metoprolol tartrate 25mg tablet PO SCH ×2 (07:16→22:04)
[2020-05-29 07:20] LABS: BASOPHILS # (AUTO) 0.1 X10'3 (0-0.2); RED CELL DISTRIBUTION WIDTH 13.8 % (11.5-14.5)
[2020-05-29 07:21] LABS: BASOPHILS % (AUTO) 0.6 % (0-1); EOSINOPHILS % (AUTO) 0.3 % (0-6); HEMATOCRIT 25.8 % (42.0-52.0); LYMPHOCYTES # (AUTO) 1.8 X10'3 (1.1-4.8); LYMPHOCYTES % (AUTO) 17.5 % (21-51); MEAN CORPUSCULAR HEMOGLOBIN 31.6 PG (27.0-31.0); MEAN CORPUSCULAR HGB CONC 34.7 g/dL (33.0-36.5); MEAN CORPUSCULAR VOLUME 90.9 FL (78-98); MEAN PLATELET VOLUME 8.4 FL (7.4-10.4); MONOCYTES # (AUTO) 1.2 X10'3 (0-0.9); MONOCYTES % (AUTO) 11.4 % (2-12); NEUTROPHILS # (AUTO) 7.4 X10'3 (1.8-7.7); NEUTROPHILS % (AUTO) 70.2 % (42-75); PLATELET COUNT 149 X10'3 (140-440); RED BLOOD COUNT 2.84 X10'6 (4.70-6.10); WHITE BLOOD COUNT 10.5 X10'3 (4.5-11.0)
[2020-05-29 07:44] LABS: ALANINE AMINOTRANSFERASE 18 U/L (12-78); ALBUMIN 2.2 G/DL (3.4-5.0); ALKALINE PHOSPHATASE 43 IU/L (46-116); ANION GAP 12 (8-16); ASPARTATE AMINO TRANSFERASE 9 U/L (10-37); BILIRUBIN,TOTAL 0.5 MG/DL (0.1-1.0); BLOOD UREA NITROGEN 16 MG/DL (7-18); BUN/CREATININE RATIO 25.8 (5.4-32.0); CALCIUM 7.3 MG/DL (8.5-10.1); CHLORIDE 106 MMOL/L (99-107); CREATININE 0.62 MG/DL (0.60-1.10); GLUCOSE 258 MG/DL (70-104); POTASSIUM 3.1 MMOL/L (3.5-5.1); SODIUM 139 MMOL/L (135-145); TOTAL CARBON DIOXIDE 21.4 MMOL/L (24-32); TOTAL PROTEIN 4.3 G/DL (6.4-8.2); eGFR > 90 ML/MIN
[2020-05-29] MEDS: K and/or MAG REPLACEMENT MC SCH ×2 (08:00→20:00)
[2020-05-29] MEDS: sodium bicarbonate (8.4%) inj. 100 MEQ in dextrose 5%-water 1,000 ML IV SCH ×3 (08:56→23:22)
[2020-05-29] MEDS: normal saline 1000ml 1,000 ML IV SCH (08:56)
[2020-05-29] MEDS: insulin Lispro (HumaLOG) vial - multi-dose SQ SCH ×2 (09:03→13:00)
[2020-05-29 11:30] VITALS: BP 119/44
--- NOTE | 2020-05-29 13:49 | NUR ---
DM consult: Attempted written/verbal DM ed, patient requested RD health information internship to try at a different time. Will need this admit. Addendum: 05/29/20 at [address] Amended: Links added. Addendum: 05/29/20 at [address] KRISTINA Olivares
[2020-05-29] MEDS ORDERED: ONDA4TAB12 PO (13:52)
[2020-05-29] MEDS ORDERED: HYDR-3686 PO (13:52)
[2020-05-29] MEDS ORDERED: GABA600T13 PO (13:52)
--- NOTE | 2020-05-29 16:57 | NUR ---
Notified Dr Lawrence that 4[address] B Mr [place] Potassium is now 2.8. Will be following the protocol in place. Awaiting orders.
[2020-05-29 18:00] VITALS: BP 112/52
[2020-05-29] MEDS: potassium Cl 40MEQ/1/2NS 520ml 520 ML IV PRN ×2 (18:01→23:23)
--- NOTE | 2020-05-29 18:15 | NUR ---
RECEIVED REPORT FROM ANGY AND ASSUMED PATIENT CARE
--- NOTE | 2020-05-29 18:32 | NUR ---
Report given to Perla GUAJARDO
--- NOTE | 2020-05-29 18:43 | NUR ---
DID NOT COVER PATIENT WITH ANY INSULIN PER PROTOCOL. ONLY ATE 2 GMS OF CARBS, BS 96
[2020-05-29] MEDS: insulin glargine (Lantus) pen - multi-dose SQ SCH (21:59)
[2020-05-29 22:00] VITALS: BP 132/47
[2020-05-29] MEDS: lactobacillus rhamnosus 10,000 MMU CELLS/CAPSULE PO SCH (22:03)
[2020-05-30] MEDS: pantoprazole 40MG/NS 100ML BAG 100 ML IV SCH ×6 (01:44→23:59)
[2020-05-30 06:00] VITALS: BP 112/42
--- NOTE | 2020-05-30 06:20 | NUR ---
REPORT GIVEN TO CLARITZA GUAJARDO
[2020-05-30 07:31] LABS: BASOPHILS # (AUTO) 0.1 X10'3 (0-0.2); BASOPHILS % (AUTO) 0.8 % (0-1); EOSINOPHILS % (AUTO) 0.4 % (0-6); HEMATOCRIT 24.5 % (42.0-52.0); HEMOGLOBIN 8.6 g/dl (14.0-17.9); LYMPHOCYTES # (AUTO) 2.6 X10'3 (1.1-4.8); LYMPHOCYTES % (AUTO) 30.2 % (21-51); MEAN CORPUSCULAR HEMOGLOBIN 31.8 PG (27.0-31.0); MEAN CORPUSCULAR HGB CONC 35.1 g/dL (33.0-36.5); MEAN CORPUSCULAR VOLUME 90.4 FL (78-98); MEAN PLATELET VOLUME 8.1 FL (7.4-10.4); MONOCYTES # (AUTO) 0.8 X10'3 (0-0.9); MONOCYTES % (AUTO) 9.9 % (2-12); NEUTROPHILS % (AUTO) 58.7 % (42-75); PLATELET COUNT 167 X10'3 (140-440); RED BLOOD COUNT 2.71 X10'6 (4.70-6.10); RED CELL DISTRIBUTION WIDTH 13.6 % (11.5-14.5); WHITE BLOOD COUNT 8.5 X10'3 (4.5-11.0)
[2020-05-30] MEDS: CefTRIAXone/D5W-Rocephin 1gm 50 ML IV SCH (08:07)
[2020-05-30] MEDS: lactobacillus rhamnosus 10,000 MMU CELLS/CAPSULE PO SCH ×2 (08:07→19:20)
[2020-05-30] MEDS: metoprolol tartrate 25mg tablet PO SCH ×2 (08:08→19:21)
[2020-05-30 08:18] LABS: ALANINE AMINOTRANSFERASE 17 U/L (12-78); ALBUMIN 2.4 G/DL (3.4-5.0); ALKALINE PHOSPHATASE 40 IU/L (46-116); ANION GAP 5 (8-16); ASPARTATE AMINO TRANSFERASE 12 U/L (10-37); BILIRUBIN,TOTAL 0.5 MG/DL (0.1-1.0); BLOOD UREA NITROGEN 6 MG/DL (7-18); BUN/CREATININE RATIO 9.4 (5.4-32.0); CALCIUM 7.4 MG/DL (8.5-10.1); CHLORIDE 106 MMOL/L (99-107); CREATININE 0.64 MG/DL (0.60-1.10); GLUCOSE 239 MG/DL (70-104); POTASSIUM 3.2 MMOL/L (3.5-5.1); SODIUM 139 MMOL/L (135-145); TOTAL CARBON DIOXIDE 27.9 MMOL/L (24-32); TOTAL PROTEIN 4.7 G/DL (6.4-8.2); eGFR > 90 ML/MIN
[2020-05-30] MEDS: insulin Lispro (HumaLOG) vial - multi-dose SQ SCH ×2 (08:31→13:25)
[2020-05-30] MEDS ORDERED: potassium Cl 40MEQ/1/2NS 520ml 520 ML IV PRN (09:45)
[2020-05-30] MEDS ORDERED: potassium Cl 20 mEq SR tablet PO PRN (09:45)
[2020-05-30] MEDS: potassium Cl 20 mEq SR tablet PO PRN ×3 (10:05→19:20)
[2020-05-30] MEDS ORDERED: hydrOXYzine 25 MG tablet PO PRN (10:45)
[2020-05-30] MEDS ORDERED: ondansetron 4mg rapidly disintigrating tab PO PRN (10:45)
[2020-05-30 11:00] VITALS: BP 115/56
--- NOTE | 2020-05-30 11:06 | NUR ---
DM Consult: A1C 9.7. Pt seen by RD for written/verbal DM ed w/ RD contact information provided. Pt declined verbal ed at this time but was agreeable to receive written handout w/ RD contact information. RD encouraged pt to contact dietitian's office if further questions/concerns. Addendum: 05/30/20 at [address] Amended: Links added.
--- NOTE | 2020-05-30 18:15 | NUR ---
RECEIVED REPORT FROM CLARITZA GUAJARDO AND ASSUMED PATIENT CARE
[2020-05-30 18:43] VITALS: BP 139/65
[2020-05-30] MEDS: K and/or MAG REPLACEMENT MC SCH (19:26)
[2020-05-30] MEDS ORDERED: gabapentin 300mg capsule PO SCH (21:00)
[2020-05-30] MEDS: insulin glargine (Lantus) pen - multi-dose SQ SCH (21:33)
[2020-05-31 00:19] VITALS: BP 108/58
[2020-05-31] MEDS: pantoprazole 40MG/NS 100ML BAG 100 ML IV SCH ×2 (04:49→11:00)
--- NOTE | 2020-05-31 06:21 | NUR ---
REPORT GIVEN TO ROCK GUAJARDO
[2020-05-31 06:31] VITALS: BP 98/48
--- NOTE | 2020-05-31 06:31 | NUR ---
Patient in room ORTHO 4015. I have received report from Perla GUAJARDO and had the opportunity to ask questions and assume patient care.
--- NOTE | 2020-05-31 06:42 | NUR ---
Patient in room ORTHO 4015. I have received report from BENNETT Duncan and had the opportunity to ask questions and assume patient care. Minerva Jj RN will provide care for pt, I will monitor all care and assist when needed.
[2020-05-31] MEDS: lactobacillus rhamnosus 10,000 MMU CELLS/CAPSULE PO SCH (07:46)
[2020-05-31] MEDS: metoprolol tartrate 25mg tablet PO SCH (07:50)
[2020-05-31] MEDS: K and/or MAG REPLACEMENT MC SCH (08:00)
[2020-05-31] MEDS ORDERED: gabapentin 300mg capsule PO SCH (08:00)
[2020-05-31 08:10] LABS: ALANINE AMINOTRANSFERASE 19 U/L (12-78); ALBUMIN 2.7 G/DL (3.4-5.0); ALBUMIN/GLOBULIN RATIO 1.1 (1.1-1.5); ALKALINE PHOSPHATASE 44 IU/L (46-116); ANION GAP 5 (8-16); ASPARTATE AMINO TRANSFERASE 12 U/L (10-37); BILIRUBIN,TOTAL 0.3 MG/DL (0.1-1.0); BLOOD UREA NITROGEN 4 MG/DL (7-18); BUN/CREATININE RATIO 5.2 (5.4-32.0); CALCIUM 8.1 MG/DL (8.5-10.1); CHLORIDE 107 MMOL/L (99-107); CREATININE 0.77 MG/DL (0.60-1.10); GLUCOSE 200 MG/DL (70-104); POTASSIUM 3.5 MMOL/L (3.5-5.1); SODIUM 140 MMOL/L (135-145); TOTAL CARBON DIOXIDE 27.7 MMOL/L (24-32); TOTAL PROTEIN 5.2 G/DL (6.4-8.2); eGFR > 90 ML/MIN
[2020-05-31 08:16] LABS: BASOPHILS % (AUTO) 0.5 % (0-1); EOSINOPHILS # (AUTO) 0.1 X10'3 (0-0.9); EOSINOPHILS % (AUTO) 1.2 % (0-6); HEMATOCRIT 26.5 % (42.0-52.0); HEMOGLOBIN 9.2 g/dl (14.0-17.9); LYMPHOCYTES # (AUTO) 3.4 X10'3 (1.1-4.8); LYMPHOCYTES % (AUTO) 32.8 % (21-51); MEAN CORPUSCULAR HEMOGLOBIN 32.1 PG (27.0-31.0); MEAN CORPUSCULAR HGB CONC 34.7 g/dL (33.0-36.5); MEAN CORPUSCULAR VOLUME 92.6 FL (78-98); MEAN PLATELET VOLUME 7.8 FL (7.4-10.4); MONOCYTES # (AUTO) 0.7 X10'3 (0-0.9); MONOCYTES % (AUTO) 7.1 % (2-12); NEUTROPHILS # (AUTO) 6.1 X10'3 (1.8-7.7); NEUTROPHILS % (AUTO) 58.4 % (42-75); PLATELET COUNT 216 X10'3 (140-440); RED BLOOD COUNT 2.86 X10'6 (4.70-6.10); RED CELL DISTRIBUTION WIDTH 13.9 % (11.5-14.5); WHITE BLOOD COUNT 10.4 X10'3 (4.5-11.0)
[2020-05-31] MEDS: CefTRIAXone/D5W-Rocephin 1gm 50 ML IV SCH (08:27)
[2020-05-31] MEDS: insulin Lispro (HumaLOG) vial - multi-dose SQ SCH ×2 (09:36→13:00)
[2020-05-31 10:00] VITALS: BP 132/57
[2020-05-31] MEDS ORDERED: PANT-47 PO (10:54)
--- NOTE | 2020-05-31 15:16 | NUR ---
Pt discharged at 1510. All questions/concerns answered. Belongings sent with patient. Tele/IV removed, no complications. Pt strongly advised to follow up with Dr. Lorenzana. Pt discharged in stable condition.
--- NOTE | 2020-05-31 15:23 | NUR ---
ORIENTEE documentation: I have reviewed and agree with all interventions, assessments performed and documented by BENNETT NGUYEN.
== END 2020-05-31 15:18 | disposition home health service (06) | DRG 377 ==
LOC: ER 02:56 → ED HOLD 04:33 → ORTHO 4S 05:53
PROVIDERS: ADMIT Internal Medicine; ATTEND Family Medicine
PROC: 0DB38ZX Excision of Lower Esophagus, Via Natural or Artificial Opening Endoscopic, Diagnostic (ICD-10-PCS; principal; 2020-05-28)
PROC: 0DB68ZX Excision of Stomach, Via Natural or Artificial Opening Endoscopic, Diagnostic (ICD-10-PCS; 2020-05-28)
DX: K29.81 Duodenitis with bleeding (principal); E11.10 Type 2 diabetes mellitus with ketoacidosis without coma; I21.A1 Myocardial infarction type 2; D62 Acute posthemorrhagic anemia; K22.10 Ulcer of esophagus without bleeding; K29.70 Gastritis, unspecified, without bleeding; Z66 Do not resuscitate; E87.6 Hypokalemia; K44.9 Diaphragmatic hernia without obstruction or gangrene; I12.9 Hypertensive chronic kidney disease with stage 1 through stage 4 chronic kidney disease, or unspecified chronic kidney disease; I48.91 Unspecified atrial fibrillation; G89.29 Other chronic pain; E11.36 Type 2 diabetes mellitus with diabetic cataract; E11.22 Type 2 diabetes mellitus with diabetic chronic kidney disease; E11.42 Type 2 diabetes mellitus with diabetic polyneuropathy; N18.9 Chronic kidney disease, unspecified; F12.90 Cannabis use, unspecified, uncomplicated; Z79.84 Long term (current) use of oral hypoglycemic drugs
CPT/HCPCS: 36415; 43239; 80048; 80053; 81001; 82272; 82948; 83036; 83605; 84132; 84484; 85025; 85027; 85610; 85730; 86885; 86900; 86901; 87081; 93005; 93306; 93308; 97116; 97161; 97530; 99152; 99285; C9113; G0378; J0696; J1630; J1650; J1815; J2250; J2405; J3010; J3480; J7030; J7070

== ENCOUNTER 2020-10-31 06:53 | Day surgery (SDC) | payer MEDICARE, MEDICAID ==
[~2020-10-31] VITALS: Ht 170.2 cm; Wt 108.2 kg
[~2020-10-31 06:53] MED LIST changes: +GABA300C PO; +GABA600T13 PO; -GLIP10TA11 PO; +HYDR-3686 PO; +METF-436 PO; -METF-900 PO; +ONDA4TAB12 PO; +PANT-47 PO
[2020-10-31 07:04] VITALS: BP 147/84
[2020-10-31] MEDS ORDERED: fentaNYL/PF 50MCG/1 ML 2ML syringe ONE ×2 (07:06→08:11)
[2020-10-31] MEDS ORDERED: MIDAZolam 1 MG/ML 5ML VIAL ONE (07:07)
[2020-10-31] MEDS ORDERED: LIDOcaine Viscous 15ml cup ONE (07:07)
[2020-10-31 09:08] VITALS: BP 126/65
[2020-10-31 09:18] VITALS: BP 136/65
[2020-10-31 09:28] VITALS: BP 120/71
[2020-10-31 09:38] VITALS: BP 128/75
== END 2020-10-31 10:08 | disposition home or self-care (01) ==
LOC: GI LAB 06:53
PROVIDERS: ATTEND Internal Medicine Gastroenterology
DX: Z12.11 Encounter for screening for malignant neoplasm of colon (principal); D12.0 Benign neoplasm of cecum; K21.00 Gastro-esophageal reflux disease with esophagitis, without bleeding; I25.2 Old myocardial infarction; I10 Essential (primary) hypertension; E11.9 Type 2 diabetes mellitus without complications; G47.30 Sleep apnea, unspecified; Z79.899 Other long term (current) drug therapy; Z79.84 Long term (current) use of oral hypoglycemic drugs
CPT/HCPCS: 43235; 45381; 45385; 88305; 99152; 99153; A4620; C1773; G0500; J2250; J3010; J7040